=== PATIENT | female | born 1945 | race Caucasian/White ===

== ENCOUNTER → 2016-09-09 | Outpatient (CLI) | payer MEDICARE ==
[~2016-09-09] MED LIST: OLME1TAB24 PO
--- NOTE | 2016-09-10 08:01 | Diagnostic Imaging Report ---
Bilateral screening mammogram. The current study was also evaluated with a Computer Aided Detection (CAD) system. INDICATION: Screening. No current complaints stated on the questionnaire. COMPARISON: 09/09/2015. FINDINGS: The breasts are composed of scattered fibroglandular densities. There are occasional benign-appearing calcifications. Allowing for technique and positional differences, no suspicious change is seen. IMPRESSION: No significant change. ACR BI-RADS Category 2: Benign findings. Result letter will be mailed to the patient. Note: At least 10% of breast cancer is not imaged by mammography. Dictated by: Dictated on workstation # [id number]
== END ==
LOC: RAD 09:01
PROVIDERS: ATTEND Internal Medicine
DX: Z12.31 Encounter for screening mammogram for malignant neoplasm of breast (principal)
CPT/HCPCS: 77067

== ENCOUNTER → 2016-09-20 | Outpatient (CLI) | payer MEDICARE ==
--- NOTE | 2016-09-20 16:30 | Diagnostic Imaging Report ---
EXAMINATION: Three views of the left chest. INDICATION: Fall. FINDINGS: There is a focal cortical step-off and adjacent lucency seen along the distal radius suggestive of deformity, likely related to an old injury. No definitive acute fracture is seen. The patient has no prior left wrist radiographs for comparison at our institution. There is slight widening of the scapholunate interval which might also relate to an old injury to the scapholunate ligament. There are sclerotic changes along the trapezium and trapezoid, probably degenerative, at the intercarpal joint and at the corresponding carpometacarpal joint at this level. IMPRESSION: 1. Mild deformity in the distal radius is favored to be related to an old injury. No prior studies, however, are available for comparison. Correlate clinically and with a CT scan of the wrist if there is suspicion of an acute or subacute fracture. 2. Widening of the scapholunate interval is suggestive of underlying ligament injury of indeterminate age. Report faxed to Dr. Atkins at 4:30 p.m. 09/20/2016/rosemary Dictated by: Dictated on workstation # [id number]
== END ==
LOC: RAD 15:51
PROVIDERS: ATTEND Internal Medicine
DX: M25.532 Pain in left wrist (principal); W19.XXXA Unspecified fall, initial encounter; Y99.8 Other external cause status
CPT/HCPCS: 73110

== ENCOUNTER 2017-07-22 12:27 | Outpatient (CLI) | payer MEDICARE ==
[~2017-07-22] VITALS: Ht 172.7 cm; Wt 80.3 kg
[2017-07-22 12:40] VITALS: BP 148/90
[2017-07-22] MEDS ORDERED: PSYL660P17 PO (12:46)
[2017-07-22] MEDS ORDERED: POLY119P5 PO (12:46)
[2017-07-22] MEDS ORDERED: MULT1TAB69 PO (12:46)
[2017-07-22] MEDS ORDERED: CALC1TAB97 PO (12:46)
[2017-07-22 13:25] LABS: BASOPHILS % (AUTO) 0 % (0-10); EOSINOPHILS # (AUTO) 0.1 10^3/uL (0.0-0.3); EOSINOPHILS % (AUTO) 2 % (0-10); HEMATOCRIT 39 % (35-52); HEMOGLOBIN 13.3 G/DL (11.5-16.0); LYMPHOCYTES # (AUTO) 2.3 X 10^3 (1.0-4.0); LYMPHOCYTES % (AUTO) 36 % (12-44); MEAN CORPUSCULAR HEMOGLOBIN 31 PG (25-34); MEAN CORPUSCULAR HGB CONC 35 G/DL (32-36); MEAN CORPUSCULAR VOLUME 90 FL (80-99); MEAN PLATELET VOLUME 9.2 FL (7.4-10.4); MONOCYTES # (AUTO) 0.7 X 10^3 (0.0-1.0); MONOCYTES % (AUTO) 11 % (0-12); NEUTROPHILS # (AUTO) 3.1 X 10^3 (1.8-7.8); NEUTROPHILS % (AUTO) 50 % (42-75); PLATELET COUNT 333 10^3/uL (130-400); RED BLOOD COUNT 4.29 10^6/uL (4.35-5.85); RED CELL DISTRIBUTION WIDTH 13.1 % (10.0-14.5); WHITE BLOOD COUNT 6.3 10^3/uL (4.3-11.0)
[2017-07-22 13:26] LABS: BILIRUBIN,URINE NEGATIVE (NEGATIVE); CLARITY,URINE CLEAR; COLOR,URINE YELLOW; GLUCOSE, URINE (UA) NEGATIVE (NEGATIVE); KETONES,URINE NEGATIVE (NEGATIVE); LEUKOCYTE ESTERASE ,URINE NEGATIVE (NEGATIVE); NITRITE,URINE NEGATIVE (NEGATIVE); PH,URINE 7 (5-9); PROTEIN,URINE NEGATIVE (NEGATIVE); UROBILINOGEN,URINE NORMAL (NORMAL)
[2017-07-22 13:33] LABS: BACTERIA,URINE NEGATIVE /HPF
[2017-07-22 13:38] LABS: PROTHROMBIN TIME PATIENT 12.8 SEC (12.2-14.7)
[2017-07-22 13:46] LABS: ALANINE AMINOTRANSFERASE 18 U/L (0-55); ALBUMIN 4.2 GM/DL (3.2-4.5); ALKALINE PHOSPHATASE 92 U/L (40-136); BILIRUBIN,TOTAL 0.4 MG/DL (0.1-1.0); BUN/CREATININE RATIO 25; CALCIUM 9.8 MG/DL (8.5-10.1); CARBON DIOXIDE 27 MMOL/L (21-32); CHLORIDE 100 MMOL/L (98-107); GFR ESTIMATED > 60; GLUCOSE 92 MG/DL (70-105); POTASSIUM 4.2 MMOL/L (3.6-5.0); SODIUM 138 MMOL/L (135-145); TOTAL PROTEIN 7.3 GM/DL (6.4-8.2)
[2017-07-22 13:58] LABS: ERYTHROCYTE SEDIMENTATION RATE 6 MM/HR (0-30)
--- NOTE | 2017-07-22 17:48 | Diagnostic Imaging Report ---
INDICATION: Preop for knee replacement. PA and lateral chest obtained at 01:43 p.m. The heart is mildly enlarged. Mediastinal silhouette is otherwise unremarkable. The lungs are clear. There is no pneumothorax or pleural fluid. IMPRESSION: Mild cardiomegaly with no acute process in the chest. Dictated by: Dictated on workstation # [id number]
== END 2017-07-22 13:20 | disposition home or self-care (01) ==
LOC: PREOP 12:27
PROVIDERS: ATTEND Orthopaedic Surgery
DX: Z01.812 Encounter for preprocedural laboratory examination (principal); Z01.810 Encounter for preprocedural cardiovascular examination; Z01.811 Encounter for preprocedural respiratory examination; Z11.2 Encounter for screening for other bacterial diseases; M17.12 Unilateral primary osteoarthritis, left knee; R53.83 Other fatigue
CPT/HCPCS: 36415; 71046; 80053; 81000; 85025; 85610; 85652; 86850; 86900; 86901; 87081; 93005

== ENCOUNTER 2017-08-03 07:37 | Inpatient (IN) | payer MEDICARE ==
--- NOTE | 2017-07-26 09:41 | HISTORY AND PHYSICAL ---
DATE OF SERVICE: This will be for inpatient admission on 08/03/2017 for left total knee arthroplasty. HISTORY OF PRESENT ILLNESS: The patient is a 72-year-old female with longstanding progressive left knee pain. She has undergone treatment with injections, home exercise program and activity modifications. She ambulates with a cane due to the pain. She reports her pain has been progressive and activity limiting. She reports pain medially and anteriorly. Radiographs reveals severe medial and patellofemoral arthrosis. Due to failure to improve with conservative measures, we elected to proceed with surgical intervention. REVIEW OF SYSTEMS: No chest pain, no shortness of breath. No dysuria. PAST MEDICAL HISTORY: Diverticulosis, hypertension, menopause. PAST SURGICAL HISTORY: Unremarkable. SOCIAL HISTORY: The patient denies alcohol, tobacco use. FAMILY HISTORY: Significant for hypertension, diabetes, cancer. Primary care provider is Dr. Atkins. MEDICATIONS: Benicar, Citracal, fish oil, Metamucil, glucosamine, Aleve, Tylenol. ALLERGIES: No known drug allergies. PHYSICAL EXAMINATION: GENERAL: The patient is well developed, well-nourished in no acute distress. HEENT: Normocephalic, atraumatic. Pupils are equal, round, reactive. Oropharynx is clear. NECK: Supple, no lymphadenopathy. LUNGS: Clear to auscultation bilaterally. HEART: Regular rate and rhythm. ABDOMEN: Soft, nontender, nondistended. EXTREMITIES: The left knee demonstrates varus alignment. Range of motion is 0/5/120. There is no varus or valgus laxity. Negative anterior and posterior drawer. Moderate effusion is noted. The patient ambulates with an antalgic gait. IMPRESSION: Severe left knee end-stage osteoarthritis unresponsive to conservative measures. PLAN: Left total knee arthroplasty. Risks, benefits of operative complications and recovery were discussed at length with the patient. She understands and wishes to proceed. Job ID: [id number] DocumentID: [id number] Dictated Date: 07/26/2017 09:09:54 Production Tester Date: 07/26/2017 09:40:01 Dictated By: ANTOINETTE BOWDEN MD
[~2017-08-03] VITALS: Ht 172.7 cm; Wt 80.3 kg
[~2017-08-03 07:37] MED LIST changes: +CALC1TAB97 PO; +MULT1TAB69 PO; +POLY119P5 PO; +PSYL660P17 PO
[2017-08-03 07:40] VITALS: BP 138/83
--- OUTSIDE RECORDS SUMMARY | 2017-08-03 07:42 | XMS REPORT | Continuity of Care Document ---
Author Author [facility] Organization [facility] Address Unknown Phone Unavailable Allergies Active Description Code Type Severity Reaction Onset Reported/Identified Relationship to Patient Clinical Status Yes No Known Drug Allergies [id number] Drug Allergy Unknown N/A 11/26/2015 Medications There is no data. Problems Date Dx Coded Attending Type Code Diagnosis Diagnosed By 09/03/2014 Ot V76.12 09/03/2014 Ot V76.12 09/03/2014 Ot V76.12 09/03/2014 Ot V76.12 09/03/2014 IRIS LACKEY APRN Ot V76.12 09/06/2014 IRIS LACKEY APRN Ot V76.12 11/01/2014 IRIS LACKEY STOP ATTACHER Ot V76.12 09/09/2015 Ot V76.12 09/09/2015 Ot V76.12 09/09/2015 Ot V76.12 09/09/2015 IRIS LACKEY STOP ATTACHER Ot V76.12 09/09/2015 IRIS LACKEY APRN Ot V76.12 09/10/2015 SHAN LAZO MD Ot Z12.31 10/01/2015 SHAN LAZO MD Ot Z12.31 ENCNTR SCREEN MAMMOGRAM FOR MALIGNANT NE 11/26/2015 SONU KING MD Ot Z01.818 ENCOUNTER FOR OTHER PREPROCEDURAL EXAMIN 11/26/2015 SONU KING MD Ot Z12.11 ENCOUNTER FOR SCREENING FOR MALIGNANT NE 11/27/2015 SONU KING MD Ot Z01.818 ENCOUNTER FOR OTHER PREPROCEDURAL EXAMIN 11/27/2015 SONU KING MD Ot Z12.11 ENCOUNTER FOR SCREENING FOR MALIGNANT NE 12/03/2015 SONU KING MD Ot K57.90 DVRTCLOS OF INTEST, PART UNSP, W/O PERF 12/03/2015 SONU KING MD Ot K64.1 SECOND DEGREE HEMORRHOIDS 12/03/2015 SONU KING MD Ot K64.2 THIRD DEGREE HEMORRHOIDS 12/03/2015 SONU KING MD Ot Z12.11 ENCOUNTER FOR SCREENING FOR MALIGNANT NE 12/05/2015 SONU KING MD Ot K57.90 DVRTCLOS OF INTEST, PART UNSP, W/O PERF 12/05/2015 SONU KING MD, Ot K64.1 SECOND DEGREE HEMORRHOIDS 12/05/2015 SONU KING MD Ot K64.2 THIRD DEGREE HEMORRHOIDS 12/05/2015 SONU KING MD, Ot Z12.11 ENCOUNTER FOR SCREENING FOR MALIGNANT NE 04/07/2016 Ot V76.12 OTH SCREEN MAMMO-MALIGN NEOPLASM OF DIMAS 04/07/2016 Ot V76.12 OTH SCREEN MAMMO-MALIGN NEOPLASM OF DIMAS 04/07/2016 IRIS LACKEY STOP ATTACHER Ot V76.12 OTH SCREEN MAMMO-MALIGN NEOPLASM OF DIMAS 04/07/2016 IRIS LACKEY STOP ATTACHER Ot V76.12 OTH SCREEN MAMMO-MALIGN NEOPLASM OF DIMAS 04/07/2016 SHAN LAZO MD Ot Z12.31 ENCNTR SCREEN MAMMOGRAM FOR MALIGNANT NE 04/07/2016 SHAN LAZO MD Ot M25.562 PAIN IN LEFT KNEE 04/27/2016 SHAN LAZO MD Ot M25.562 PAIN IN LEFT KNEE 04/30/2016 SHAN LAZO MD Ot M25.562 PAIN IN LEFT KNEE 09/09/2016 SHAN LAZO MD Ot Z12.31 ENCNTR SCREEN MAMMOGRAM FOR MALIGNANT NE 09/09/2016 SHAN LAZO MD Ot Z12.31 ENCNTR SCREEN MAMMOGRAM FOR MALIGNANT NE 09/09/2016 SHAN LAZO MD Ot Z12.31 ENCNTR SCREEN MAMMOGRAM FOR MALIGNANT NE 09/20/2016 SHAN LAZO MD Ot M25.532 PAIN IN LEFT WRIST 09/20/2016 SHAN LAZO MD Ot W19.XXXA UNSPECIFIED FALL, INITIAL ENCOUNTER 09/20/2016 SHAN LAZO MD Ot Y99.8 OTHER EXTERNAL CAUSE STATUS 10/05/2016 SHAN LAZO MD Ot Z12.31 ENCNTR SCREEN MAMMOGRAM FOR MALIGNANT NE 10/12/2016 SHAN LAZO MD Ot M25.532 PAIN IN LEFT WRIST 10/12/2016 SHAN LAZO MD, Ot W19.XXXA UNSPECIFIED FALL, INITIAL ENCOUNTER 10/12/2016 SHAN LAZO MD Ot Y99.8 OTHER EXTERNAL CAUSE STATUS 10/20/2016 SHAN LAZO MD Ot M25.532 PAIN IN LEFT WRIST 10/20/2016 SHAN LAZO MD, Ot W19.XXXA UNSPECIFIED FALL, INITIAL ENCOUNTER 10/20/2016 SHAN LAZO MD, Ot Y99.8 OTHER EXTERNAL CAUSE STATUS Procedures There is no data. Results Test Result Range Methicillin resistant Staphylococcus aureus (MRSA) screening culture - 13:08 Methicillin resistant Staphylococcus aureus (MRSA) screening culture NEG NRG Complete blood count (CBC) with automated white blood cell (WBC) differential - 07/22/17 13:10 Blood leukocytes automated count (number/volume) 6.3 10*3/uL 4.3-11.0 Blood erythrocytes automated count (number/volume) 4.29 10*6/uL 4.35-5.85 Venous blood hemoglobin measurement (mass/volume) 13.3 g/dL 11.5-16.0 Blood hematocrit (volume fraction) 39 % 35-52 Automated erythrocyte mean corpuscular volume 90 [foz_us] 80-99 Automated erythrocyte mean corpuscular hemoglobin (mass per erythrocyte) 31 pg 25-34 Automated erythrocyte mean corpuscular hemoglobin concentration measurement ( mass/volume) 35 g/dL 32-36 Automated erythrocyte distribution width ratio 13.1 % 10.0-14.5 Automated blood platelet count (count/volume) 333 10*3/uL 130-400 Automated blood platelet mean volume measurement 9.2 [foz_us] 7.4-10.4 Automated blood neutrophils/100 leukocytes 50 % 42-75 Automated blood lymphocytes/100 leukocytes 36 % 12-44 Blood monocytes/100 leukocytes 11 % 0-12 Automated blood eosinophils/100 leukocytes 2 % 0-10 Automated blood basophils/100 leukocytes 0 % 0-10 Blood neutrophils automated count (number/volume) 3.1 10*3 1.8-7.8 Blood lymphocytes automated count (number/volume) 2.3 10*3 1.0-4.0 Blood monocytes automated count (number/volume) 0.7 10*3 0.0-1.0 Automated eosinophil count 0.1 10*3/uL 0.0-0.3 Automated blood basophil count (count/volume) 0.0 10*3/uL 0.0-0.1 Complete urinalysis with reflex to culture - 07/22/17 13:10 Urine color determination YELLOW NRG Urine clarity determination CLEAR NRG Urine pH measurement by test strip 7 5-9 Specific gravity of urine by test strip 1.005 1.016- 1.022 Urine protein assay by test strip, semi-quantitative NEGATIVE NEGATIVE Urine glucose detection by automated test strip NEGATIVE NEGATIVE Erythrocytes detection in urine sediment by light microscopy NEGATIVE NEGATIVE Urine ketones detection by automated test strip NEGATIVE NEGATIVE Urine nitrite detection by test strip NEGATIVE NEGATIVE Urine total bilirubin detection by test strip NEGATIVE NEGATIVE Urine urobilinogen measurement by automated test strip (mass/volume) NORMAL NORMAL Urine leukocyte esterase detection by dipstick NEGATIVE NEGATIVE Automated urine sediment erythrocyte count by microscopy (number/high power field) NONE NRG Automated urine sediment leukocyte count by microscopy (number/high power field ) NONE NRG Bacteria detection in urine sediment by light microscopy NEGATIVE NRG Squamous epithelial cells detection in urine sediment by light microscopy NONE NRG Crystals detection in urine sediment by light microscopy NONE NRG Casts detection in urine sediment by light microscopy NONE NRG Mucus detection in urine sediment by light microscopy NEGATIVE NRG Complete urinalysis with reflex to culture NO NRG PT panel in platelet poor plasma by coagulation assay - 07/22/17 13:10 Prothrombin time (PT) in platelet poor plasma by coagulation assay 12.8 s 12.2-14.7 INR in platelet poor plasma or blood by coagulation assay 1.0 0.8-1.4 Comprehensive metabolic panel - 07/22/17 13:10 Serum or plasma sodium measurement (moles/volume) 138 mmol/L 135-145 Serum or plasma potassium measurement (moles/volume) 4.2 mmol/L 3.6-5.0 Serum or plasma chloride measurement (moles/volume) 100 mmol/L 98-107 Carbon dioxide 27 mmol/L 21-32 Serum or plasma anion gap determination (moles/volume) 11 mmol/L 5-14 Serum or plasma urea nitrogen measurement (mass/volume) 20 mg/dL 7-18 Serum or plasma creatinine measurement (mass/volume) 0.80 mg/dL 0.60-1.30 Serum or plasma urea nitrogen/creatinine mass ratio 25 NRG Serum or plasma creatinine measurement with calculation of estimated glomerular filtration rate > NRG Serum or plasma glucose measurement (mass/volume) 92 mg/dL 70-105 Serum or plasma calcium measurement (mass/volume) 9.8 mg/dL 8.5-10.1 Serum or plasma total bilirubin measurement (mass/volume) 0.4 mg/dL 0.1-1.0 Serum or plasma alkaline phosphatase measurement (enzymatic activity/volume) 92 U/L 40-136 Serum or plasma aspartate aminotransferase measurement (enzymatic activity/ volume) 20 U/L 5-34 Serum or plasma alanine aminotransferase measurement (enzymatic activity/volume ) 18 U/L 0-55 Serum or plasma protein measurement (mass/volume) 7.3 g/dL 6.4-8.2 Serum or plasma albumin measurement (mass/volume) 4.2 g/dL 3.2-4.5 Erythrocyte sedimentation rate by westergren method - 07/22/17 13:10 Erythrocyte sedimentation rate by westergren method 6 mm 0-30 Blood type T Indirect antibody screen panel - 07/22/17 13:10 ABO+Rh group AP NRG Blood group antibody screen NEGATIVE NRG Encounters ACCT No. Visit Date/Time Discharge Status Pt. Type Provider Facility Loc./Unit Complaint [id number] 09/20/2016 15:51:00 09/20/2016 23:59:59 CLS Outpatient SHAN LAZO MD [facility] RAD PAIN POST FALL [id number] 09/09/2016 09:01:00 09/09/2016 23:59:59 CLS Outpatient SHAN LAZO MD [facility] RAD SCREENING [id number] 04/05/2016 10:53:00 04/05/2016 23:59:59 CLS Outpatient SHAN LAZO MD [facility] RAD L KNEE XRAY [id number] 12/03/2015 08:18:00 12/03/2015 12:05:00 DIS Outpatient SONU KING MD [facility] SDC SCREENING [id number] 11/26/2015 05:36:00 11/26/2015 08:58:00 DIS Outpatient SONU KING MD [facility] PREOP SCREENING [id number] 09/09/2015 10:25:00 09/09/2015 23:59:59 CLS Outpatient SHAN LAZO MD [facility] RAD SCREENING [id number] 09/03/2014 09:15:00 09/03/2014 23:59:59 CLS Outpatient IRIS LACKEY STOP ATTACHER [facility] RAD SCREENING [id number] 08/28/2013 10:24:00 08/28/2013 23:59:59 CLS Outpatient IRIS LACKEY STOP ATTACHER [facility] RAD SCREENING [id number] 08/03/2017 09:45:00 RYAN BOWDEN MD, ANTOINETTE Thurman LEFT KNEE OSTEOARTHRITIS [id number] 07/22/2017 13:27:00 Document Registration [id number] 08/21/2012 10:10:00 Document Registration [id number] 08/16/2011 08:19:00 Document Registration [id number] 08/06/2010 08:45:00 Document Registration [id number] 08/04/2009 08:52:00 Document Registration
[2017-08-03] MEDS ORDERED: LACTATED RINGERS 1,000 ML IV PRN (07:44)
[2017-08-03] MEDS ORDERED: CEFUROXIME INJECTION 1,500 MG in NS (IVPB) 50 ML IV ONE (07:45)
[2017-08-03] MEDS ORDERED: INTRA-ARTICULAR IU ONE ×5 (08:00)
[2017-08-03] MEDS ORDERED: fentaNYL INJECTION 100 MCG/2 ML AMP ONE ×2 (08:54→09:57)
[2017-08-03] MEDS ORDERED: LACTATED RINGERS 1,000 ML IV ONE (08:54)
[2017-08-03] MEDS ORDERED: LIDOCAINE PF 2% 5 ML (XYLOCAINE) VIAL ONE (08:54)
[2017-08-03] MEDS ORDERED: ONDANSETRON 4 MG/2 ML (SDV) Z0FRAN ONE (08:54)
[2017-08-03] MEDS ORDERED: proPOfol 200 MG/20 ML (DIPRIVAN) VIAL IV ONE (08:54)
[2017-08-03] MEDS ORDERED: ROCURONIUM 50 MG/5 ML (ZEMURON) VIAL IV ONE (08:54)
[2017-08-03] MEDS ORDERED: MIDAZOLAM 2 MG/2 ML (VERSED) VIAL ONE (08:55)
[2017-08-03] MEDS ORDERED: SEVOFLURANE (ULTANE) 15 ML INHAL SOLN ONE ×4 (09:07)
--- NOTE | 2017-08-03 09:12 | Progress Note-Pre Operative ---
Pre-Operative Progress Note H&P Reviewed The H&P was reviewed, patient examined and no changes noted. Date Seen by Provider: Aug 03, 2017 Time Seen by Provider: 09:05 Date H&P Reviewed: Aug 03, 2017 Time H&P Reviewed: 09:04 Pre-Operative Diagnosis: left knee primary osteoarthritis ANTOINETTE BOWDEN MD Aug 03, 2017 09:12
--- NOTE | 2017-08-03 09:13 | Progress Note-Post Operative ---
Post-Operative Progess Note Surgeon (s)/Java Mobile Developer (s) Surgeon ANTOINETTE BOWDEN MD Java Mobile Developer: Syed Keating Pre-Operative Diagnosis left knee primary osteoarthritis Post-Operative Diagnosis left knee primary osteoarthritis Procedure & Operative Findings Date of Procedure 08/03/17 Procedure Performed/Findings left total knee arthroplasty Anesthesia Type GETA Estimated Blood Loss Estimated blood loss (mL): minimal Specimens/Packing Specimens Removed none Packing: none ANTOINETTE BOWDEN MD Aug 03, 2017 09:13
[2017-08-03] MEDS ORDERED: OXYC-197 PO (09:14)
[2017-08-03] MEDS ORDERED: morphine PCA 30 MG/30 ML VIAL IV PRN (09:15)
[2017-08-03] MEDS ORDERED: ACETAMINOPHEN 325 MG TABLET/CAPLET (TYLENOL) PO PRN (09:15)
[2017-08-03] MEDS ORDERED: diphenhydrAMINE 50 MG/ML INJ (BENADRYL) IVP PRN (09:15)
[2017-08-03] MEDS ORDERED: ONDANSETRON 4 MG/2 ML (SDV) Z0FRAN IVP PRN ×2 (09:15→11:00)
--- NOTE | 2017-08-03 09:16 | D/C HH Face to Face Order ---
D/C Face to Face Orders Instructions for Patient Patient Instructions/FollowUp: three weeks Physician to follow Patient: three weeks Discharge Diet for Home: Regular Diet Patient Data-Allergies,Ht & Wt Patient Allergies: Coded Allergies: No Known Drug Allergies (Unverified , 11/26/15) Height (Feet): 5 Height (Inches): 8.00 Weight (Pounds): 177 Weight (Ounces): 0.0 Home Health Need/Face to Face Date of Face to Face: Aug 03, 2017 Clinical Findings: Instability, Muscle weakness, Non or partial weight bearing , Pain with ambulation, Unsteady gait I have seen Pt [id number]: Yes Discharged To: Home Diagnosis/Conditions: left total knee arthroplasty Problems/Diagnosis/Condition: Patient is Homebound due to: Selvin fall risk due to instabilty, Pain w/ ambulation Homebound Status Due to the above stated illness, injury or surgical procedure (medical condition or diagnosis) and associated clinical findings, the patient is homebound because of his/her inability to leave home except with aid of a supportive device and/or person AND leaving the home requires a considerable and taxing effort or is medically contraindicated. Pt req the following assistanc: [facility] Nursing Orders Home Health Services Order: Physical Therapy-Evaluate & Treat Home Health Infusion Therapy Line Start Date: Aug 03, 2017 Line Start Time: 0815 Line Type: Peripheral IV Site Location: Hand Therapy Orders Therapy Orders: Physical Therapy Therapy Specific Orders: Eval assistive deivces, Teach enviro modifications/ safety, Gait training, Increase strength/endurance, Restore ROM Certify Stmt I certify that this patient is under my care and that I, a nurse practitioner or a physician; a child care center assistant director working with me, had a face to face encounter that - meets the physician face to face encounter requirements with this patient as dated. ANTOINETTE BOWDEN MD Aug 03, 2017 09:16
[2017-08-03] MEDS ORDERED: morphine INJ 10 MG/ML 1ML (SYR OR VIAL) ONE (10:14)
[2017-08-03] MEDS ORDERED: MEPERIDINE (DEMEROL) INJ 50 MG/ML IVP PRN (11:00)
[2017-08-03] MEDS: morphine INJ 10 MG/ML 1ML (SYR OR VIAL) IVP PRN ×2 (11:04→11:08)
[2017-08-03] MEDS ORDERED: PROMETHAZINE INJ 25 MG/ML (PHENERGAN) AMP ONE (11:06)
[2017-08-03] MEDS: HYDROmorphone (DILAUDID) 2 MG/ML VIAL IVP PRN ×4 (11:10→11:38)
[2017-08-03] MEDS: PROMETHAZINE INJ 25 MG/ML (PHENERGAN) AMP IVP PRN ×2 (11:18→11:29)
--- NOTE | 2017-08-03 11:33 | Diagnostic Imaging Report ---
INDICATION: Left knee arthroplasty. TIME OF EXAMINATION: 11:00 AM. FINDINGS: Two views of the left knee demonstrate postop changes of total knee arthroplasty. The prosthetic elements are in good position. Overlying skin rafa are noted. IMPRESSION: Satisfactory postop appearance to the left knee. Dictated by: Dictated on workstation # [id number]
--- NOTE | 2017-08-03 11:58 | Progress Note-Standard ---
Standard Progress Note Progress Notes/Assess & Plan Date Seen by Provider: Aug 03, 2017 Time Seen by Provider: 11:53 Progress/Assessment & Plan post op check no complaints radiographs--hw well positioned without fractures LLE-2 plus DP with brisk cap refill. sensation intact throughout. Intact DF and PF of toes and ankle s/p L TKA doing well mobilize as tolerated ANTOINETTE BOWDEN MD Aug 03, 2017 11:58
[2017-08-03 12:30] VITALS: BP 148/76
[2017-08-03] MEDS: NS IV 1000 ML 1,000 ML IV SCH (12:44)
--- NOTE | 2017-08-03 14:09 | Consultation-Hospitalist ---
HPI History of Present Illness: HPI/Chief Complaint Pt is a 72yoCF with a history of OA and HTN who was admitted to the hospital for left TKA. She is postoperative now and still somewhat sedated from the anesthesia. She denies any complaints. She reports her only history is HTN and she only takes medicine for that. I am consulted for medical management. Date Seen 08/03/17 Attending Physician Shaan Montemayor MD PCP Francisco Atkins MD Referring Physician Date of Admission Aug 03, 2017 at 7:37 am Home Medications & Allergies Home Medications Reviewed patient Home Medication Reconciliation Form Allergies Allergies Coded Allergies No Known Drug Allergies (Unverified11/26/15) Past Ginprbq-Agvwyv-Hgenvq Hx Patient Social History Marrital Status: Alcohol Use: Rarely Uses Number of Drinks Today: 0 Recreational Drug Use: No Smoking Status: Never a Smoker Physical Abuse Screen: No Sexual Abuse: No Recent Foreign Travel: No Contact w/other who traveled: No Recent Hopitalizations: No Recent Infectious Disease Expo: No Immunizations Up To Date Date of Pneumonia Vaccine: Jul 22, 2013 Date of Influenza Vaccine: Mar 13, 2017 Seasonal Allergies Seasonal Allergies: No Surgeries Yes (cataracts) Respiratory No Cardiovascular No Neurological No Genitourinary No (OAB) Gastrointestinal Yes Chronic Constipation, Diverticulosis Musculoskeletal Yes Arthritis Endocrine History of Endocrine Disorders: No HEENT History of HEENT Disorders: Yes (CATARACTS REMOVED,) Cancer No Psychosocial History of Psychiatric Problem: No Integumentary History of Skin or Integumenta: No Blood Transfusions History of Blood Disorders: No Family Medical History Family Hx: Colon cancer 19 FATHER (LIVER) 19 MOTHER (LIVER) Diabetes mellitus G8 BROTHER G8 SISTER Hypertension G8 BROTHER G8 SISTER Respiratory disorder 19 MOTHER (LUNG CANCER) Thyroid disease G8 SISTER Review of Systems Constitutional: No chills, No fever EENTM: No blurred vision, No double vision, No nose congestion, No throat pain Respiratory: No cough, No dyspnea on exertion, No short of breath Cardiovascular: No chest pain, No edema, No palpitations Gastrointestinal: No abdominal pain, No constipation, No diarrhea, No nausea, No vomiting Genitourinary: No dysuria, No frequency Musculoskeletal: joint pain, No muscle pain Skin: No lesions, No rash Psychiatric/Neurological: Denies Headache, Denies Numbness, Denies Tingling Physical Exam Physical Exam Vital Signs Vital Signs - First Documented 2/21/18 2/21/18 07:40 12:30 Temp 98.7 Pulse 68 Resp 16 B/P (MAP) 138/83 (101) Pulse Ox 96 O2 Delivery Room Air O2 Flow Rate 4.00 Capillary Refill : General Appearance: No Apparent Distress, WD/WN HEENT: PERRL/EOMI, Moist Mucous Membranes Neck: Non Tender, Supple Respiratory: Lungs Clear, No Respiratory Distress Cardiovascular: Regular Rate, Rhythm, No Murmur Gastrointestinal: Normal Bowel Sounds, Non Tender, Soft Extremity: Normal Capillary Refill, No Calf Tenderness Neurologic/Psychiatric: Alert, Oriented x3, Normal Mood/Affect Skin: Normal Color, Warm/Dry Assessment/Plan Admission Diagnosis left knee osteoarthritis Diagnosis/Problems Diagnosis/Problems (1) Knee osteoarthritis Assessment & Plan: s/p TKA by Dr Montemayor Management per primary PT/OT SORT SUPERVISOR for pain control Qualifiers: Qualified Codes: M17.10 - Unilateral primary osteoarthritis, unspecified knee (2) Essential (primary) hypertension Assessment & Plan: Continue home antihypertensives (3) Prophylactic measure Assessment & Plan: Lovenox Reg Diet NS at 80ml/hr Clinical Quality Measures DVT/VTE Risk/Contraindication: Risk Factor Score Per Nursin RFS Level Per Nursing on Admit: 4+=Very High DIOMEDES ALVAREZ MD Aug 03, 2017 2:09 pm
--- NOTE | 2017-08-03 15:08 | Physical Therapy Evaluation ---
PT Evaluation-General Medical Diagnosis Admission Date Aug 03, 2017 at 07:37 Medical Diagnosis: L knee OA Onset Date: Aug 03, 2017 Therapy Diagnosis Therapy Diagnosis: weakness; abn gait Height/Weight Height (Feet): 5 Height (Inches): 8.00 Weight (Pounds): 177 Weight (Ounces): 0.0 Precautions Precautions/Isolations: Fall Prevention, Standard Precautions Weight Bear Status Right Lower Extremity: Right Full Weight Bearing Left Lower Extremity: Left Weight Bearing/Tolerated Referral Physician: Albina Reason for Referral: Evaluation/Treatment Medical History Pertinent Medical History: Diverticulitis, HTN Current History Elective left TKR Reviewed History: Yes Social History Home: Single Level Current Living Status: Spouse Prior/Core FIM Prior Level of Function Functional [place] Measure 0=Not Assessed/NA 4=Minimal Assistance 1=Total Assistance 5=Supervision or Setup 2=Maximal Assistance 6=Modified [place] 3=Moderate Assistance 7=Complete [place] Pt was indep at [facility] PT Evaluation-Current Subjective Pt very groggy. Difficulty staying awake. Agrees to try to participate. Pain Numeric Pain Scale: 5-Moderate Pain Location: Left Location Body Site: Knee Pain Description: Ache Pt/Family Goals Home when able Objective Patient Orientation: Person, Confused (groggy due to pain meds), Place, Time, Situation Problem Solving: Fair Attachments: Oxygen, IV ROM/Strength ROM Lower Extremities WFL Strength Lower Extremities Right LE is WFL; left LE NT Integumentary/Posture Integumentary Refer to nursing notes. Bowel Incontinence: No Bladder Incontinence: No Posture normal and symmetrical Neuromuscular (Tone, Coordination, Reflexes) intact Sensory Vision: Functional Hearing: Functional Hand Dominance: Right Transfers Functional [place] Measure 0=Not Assessed/NA 4=Minimal Assistance 1=Total Assistance 5=Supervision or Setup 2=Maximal Assistance 6=Modified [place] 3=Moderate Assistance 7=Complete [place] Pt was able to transfer sup to sit EOB with min assist primarily for the left LE. Sit to stand with min assist. Pt stood at EOB with FWW with min assist. Pt required min assist to transfer sit to supine. Gait Gait Assistive Device: FWW Balance Sitting Static: Good Sitting Dynamic: Good Standing Static: Fair Standing Dynamic: Fair Treatment Pt stood EOB with FWW. Unable to take steps this visit as it was unsafe due to patient's level of grogginess due to pain meds. CPM applied 0-45 degrees. Nursing notified and to remove the CPM at [id number]. Assessment/Needs Post elective TKR left. Will beneift from skilled PT to address functional mobility, ROM, strength and gait . She is groggy today due to pain medication and anesthesia. Feel that tomorrow she will be more clear. Rehab Potential: Good PT Penitentiary Goals Penitentiary Goals PT Penitentiary Goals Time Frame: Aug 08, 2017 Transfers (B,C,W/C) (FIM): 6 Gait (FIM): 6 Gait distance (FIM): 3=150 ft Gait Assistive Device: FWW Stairs (FIM): 2 # of Steps: 4 PT Plan Problem List Problem List: Activity Tolerance, Functional Strength, Safety, Balance, Gait, Transfer, Bed Mobility Treatment/Plan Treatment Plan: Continue Plan of Care Treatment Plan: Bed Mobility, Education, Functional Activity Krish, Functional Strength, Gait, Safety, Therapeutic Exercise, Transfers Treatment Duration: Aug 08, 2017 Frequency: 11 times per week Estimated Hrs Per Day: 1 hour per day Patient and/or Family Agrees t: Yes Safety Risks/Education Patient Education: Transfer Techniques Teaching Recipient: Patient Teaching Methods: Discussion Response to Teaching: Reinforcement Needed Discharge Recommendations Therapy D/C Recommendations: Physical Therapy Home Care Time/GCodes Time In: 1430 Time Out: 1455 Total Billed Treatment Time: 25 Total Billed Treatment visit EMV 15 FA 10 CPM and pads. CAMPOS NEGRETE PT Aug 03, 2017 15:08
[2017-08-03 16:00] VITALS: BP 128/72
[2017-08-03] MEDS: CEFUROXIME INJECTION 750 MG in NS (IVPB) 50 ML IV SCH (17:05)
--- NOTE | 2017-08-03 17:14 | OPERATIVE REPORT ---
DATE OF SERVICE: 08/03/2017 PREOPERATIVE DIAGNOSIS: Left knee primary osteoarthritis. POSTOPERATIVE DIAGNOSIS: Left knee primary osteoarthritis. PROCEDURE: Right total knee arthroplasty. SURGEON: Shaan Bowden MD. BOOK RETAILER: SUSAN Rodriguez, who assisted throughout the procedure and closed the incisions. ANESTHESIA: General endotracheal. TOURNIQUET TIME: 65 minutes at 300 mmHg. ESTIMATED BLOOD LOSS: Minimal. DRAINS: None. COMPLICATIONS: None. POSTOPERATIVE PLAN: Routine protocol. The patient was transferred to the recovery room awake and in stable condition. MATERIALS: MicroPort cemented size 5 femur, cemented size 4+ tibia with a 10 mm insert and a cemented size 32 patella. STATEMENT OF MEDICAL NECESSITY: The patient is a 72-year-old female with progressive worsening left knee pain. She has ambulated with a cane and has tried injections, anti-inflammatories and activity modifications without relief. Radiographs reveal severe tricompartmental osteoarthritis. Due to failure to respond to conservative management with progressive loss of function, the patient elected to proceed with surgical intervention. DESCRIPTION OF PROCEDURE: After risks and benefits of procedure were discussed and questions were answered, an informed consent was signed and placed on the chart. The operative site was confirmed in the preoperative holding area and the patient was transported to the operating room. After adequate levels of general endotracheal anesthetic were obtained, a timeout was called, confirming the operative site. Left lower extremity was prepped and draped in usual sterile fashion with the leg elevated and the knee flexed, tourniquet inflated 300 mmHg. A standard anterior approach was utilized. Hemostasis was obtained with cautery. A medial parapatellar arthrotomy was performed leaving 1 cm cuff on the patella for later reattachment; a portion of the fat pad was resected. A subperiosteal release was performed in the proximal medial tibia with curved osteotome being careful to stay on the bony surface. The ACL was resected. The intramedullary guide was passed into the femur and the distal cutting block was placed. Distal cut was made. The femur sized to a size 5. The 5 cutting block was placed parallel to the epicondylar axis and cuts were made from posterior to anterior. A subperiosteal release was then carefully performed on the posterior distal femur, being careful to stay on the bony surface with curved osteotome. The intramedullary guide was then passed into the tibia. The cutting block was placed. The drop mikey transected the intermalleolar axis. The cut was made. The baseplate was placed and again the drop mikey transected. The intramedullary axis was then prepared with the drill and keel punch. The tibial trial was placed. The femoral trial was placed and the trochlear cut was made. A 10 mm insert was then placed. The patella was then prepared using freehand technique by resecting 10 mm off the undersurface. The peg guide was then placed and the peg holes were drilled. The 32 trial was placed. Knee was taken through range of motion, full extension was easily obtained. Greater than 120 degrees of flexion with gravity was easily obtained. There was no anterior/posterior or medial/lateral laxity in flexion or extension. The trials were inserted. The joint was copiously irrigated with pulse lavage. The periarticular block was placed in the posterior capsule, medial and lateral retinaculum and extensor mechanism as well as subcutaneous tissues. The bone ends were irrigated and dried. The tibial baseplate was cemented into position. Excess cement was removed. The superior surface was then irrigated and dried. The polyethylene insert was placed. The distal femur was irrigated and dried and the femoral prosthesis was cemented into position. Excessive cement was removed. The knee was brought out into full extension until the cement had cured. The undersurface of the patella was irrigated and dried. The patellar button was cemented into position. Excessive cement was removed. Once the cement had cured, knee was taken through range of motion. Full extension was easily obtained; 120 degrees of flexion was easily obtained with gravity. The patella tracked well. There is no anterior/posterior or medial/lateral laxity in flexion or extension. The joint was further irrigated with pulse lavage. The arthrotomy was closed with #2 Tevdek in figure-of-8 interrupted fashion. The knee was flexed. The patella tracked well with no undue tension at the repair site. Subcutaneous tissues were irrigated using a total of 6 liters throughout the procedure. 0 Vicryl was used for the deep subcutaneous tissue, 2-0 Vicryl for the superficial subcutaneous tissue, and rafa were used on the skin. A soft dressing was applied. Tourniquet was deflated. The patient was transported to the recovery room awake and in stable condition. Job ID: [id number] DocumentID: [id number] Dictated Date: 08/03/2017 12:00:10 Prescription Eyeglass Maker Date: 08/03/2017 17:13:28 Dictated By: SHAAN BOWDEN MD
[2017-08-03] MEDS: SENNA W/DOCUSATE (SENOKOT S) TABLET PO SCH (19:37)
[2017-08-03 20:00] VITALS: BP 143/70
[2017-08-03 23:57] VITALS: BP 128/70
[2017-08-04] MEDS: CEFUROXIME INJECTION 750 MG in NS (IVPB) 50 ML IV SCH (00:50)
[2017-08-04] MEDS: NS IV 1000 ML 1,000 ML IV SCH (00:50)
[2017-08-04 04:00] VITALS: BP 132/57
[2017-08-04] MEDS: MULTIVIT W/MINERALS TAB (THERAGRAN M) PO SCH (06:03)
[2017-08-04 06:31] LABS: HEMOGLOBIN 9.8 G/DL (11.5-16.0)
--- NOTE | 2017-08-04 07:58 | Progress Note-Standard ---
Standard Progress Note Progress Notes/Assess & Plan Date Seen by Provider: Aug 04, 2017 Time Seen by Provider: 07:56 Progress/Assessment & Plan post op check no complaints radiographs--hw well positioned without fractures LLE-2 plus DP with brisk cap refill. sensation intact throughout. Intact DF and PF of toes and ankle s/p L TKA doing well mobilize as tolerated Final Diagnosis having thigh pain Vital Signs Date Time Temp Pulse Resp B/P (MAP) Pulse Ox O2 Delivery O2 Flow Rate FiO2 08/04/17 07:32 92 Nasal Cannula 2.00 08/04/17 06:00 20 08/04/17 04:00 98.0 75 20 132/57 (82) 97 Nasal Cannula 2.00 08/04/17 02:53 97 Nasal Cannula 2.00 08/03/17 23:57 97.1 75 16 128/70 (89) 98 Nasal Cannula 2.00 08/03/17 22:51 97 Nasal Cannula 2.00 08/03/17 20:00 96.8 74 16 143/70 (94) 96 Nasal Cannula 4.00 08/03/17 20:00 Nasal Cannula 2.00 08/03/17 19:18 95 Nasal Cannula 2.00 08/03/17 16:00 98.6 80 16 128/72 (90) 93 Nasal Cannula 4.00 08/03/17 14:48 96 Nasal Cannula 3.00 08/03/17 13:27 100 Nasal Cannula 3.50 08/03/17 12:51 16 08/03/17 12:45 94 Nasal Cannula 4.00 08/03/17 12:30 98.0 71 16 148/76 (100) 99 Nasal Cannula 4.00 I & O 08/04/17 07:00 Intake Total 3180 ml Output Total 350 ml Balance 2830 ml Laboratory Tests Test 08/04/17 05:05 Range/Units Hemoglobin 9.8 L 11.5-16.0 G/DL Hematocrit 30 L 35-52 % LLE--dressing intact.NVI distally. mildly painful at tourniquet site s/p LTKA PT/OT will require inpatient status due to pain control and gait disorder ANTOINETTE BOWDEN MD Aug 04, 2017 07:58
[2017-08-04 08:00] VITALS: BP 142/67
[2017-08-04] MEDS: ENOXAPARIN 30 MG/0.3 ML (LOVENOX) SYR SC SCH ×2 (08:16→19:26)
[2017-08-04] MEDS: HYDROCHLOROTHIAZIDE 12.5 MG (HCTZ) CAP PO SCH (08:17)
[2017-08-04] MEDS: OLMESARTAN 20 MG (BENICAR) TABLET PO SCH (08:17)
[2017-08-04] MEDS: oxyCODONE/APAP 5/325MG (PERCOCET 5) TABLET PO PRN ×4 (08:17→19:32)
[2017-08-04] MEDS: ASPIRIN E.C. 81 MG (ECOTRIN) TAB PO SCH (08:17)
[2017-08-04] MEDS: SENNA W/DOCUSATE (SENOKOT S) TABLET PO SCH ×2 (08:18→19:36)
[2017-08-04] MEDS ORDERED: [UNRECOGNIZED DRUG - OTHER] PO SCH (09:00)
[2017-08-04] MEDS ORDERED: HYDROCHLOROTHIAZIDE PO SCH (09:00)
[2017-08-04] MEDS ORDERED: OLMESARTAN PO SCH (09:00)
--- NOTE | 2017-08-04 09:04 | Physical Therapy Daily Note ---
PT Daily Note-Current Subjective Patient agrees to PT. Pain Numeric Pain Scale: 7 Location: Left Location Body Site: Knee Pain Description: Acute Comment: VIDEO EFFECTS EDITOR and pain medication Mental Status Patient Orientation: Normal For Age Attachments: Polar Pack, IV Transfers Functional [place] Measure 0=Not Assessed/NA 4=Minimal Assistance 1=Total Assistance 5=Supervision or Setup 2=Maximal Assistance 6=Modified [place] 3=Moderate Assistance 7=Complete IndependenceIRFPAI Quality Coding Scale 6 Independent with activity with or without an assistive device 5 Patient requires set up or clean up by helper. Patient completes activity by themselves 4 Supervision or touching assist (CGA). [place] provide cues , steadying assist 3 The helper provides less than half the effort to complete the activity 2 The helper provides more than half the effort to complete the activity 1 Dependent. The helper does all the effort to complete an activity 7 Patient refused to complete or attempt activity 9 The patient did not perform the activity before the current illness or injury 88 Not attempted due to Medical conditions or safety concerns Transfers (B, C, W/C) (FIM): 5 Scootin Rollin Supine to/from Sit: 5 Sit to/from Stand: 5 Weight Bearing Right Lower Extremity: Right Full Weight Bearing Left Lower Extremity: Left Weight Bearing/Tolerated Gait Training Gait (FIM): 2 Distance (FIM): 1=072-05 ft Distance: 50' Gait Level of Assist: 4 Gait Assistive Device: FWW antalgic, step to gait sequence Exercises Supine Ex: Ankle pumps, Quad Set, Heel Slides, Straight leg raise Supine Reps: 10 (bilatearlly AAROM left LE) Seated Therapy Exercises: Long arc quads Seated Reps: 10 (AROM) Assessment Patient is progressing with treatment plan. Patient is up in recliner with needs met. PT encouraged patient to perform seated exercises PRN while up. Patient voices understanding. PT educated patient on VIDEO EFFECTS EDITOR and pain medication to ensure the best possible outcome with therapy. PT Prison Goals Vacuum Conditioner Operator Goals PT Vacuum Conditioner Operator Goals Time Frame: Aug 08, 2017 Transfers (B,C,W/C) (FIM): 6 Gait (FIM): 6 Gait distance (FIM): 3=150 ft Gait Assistive Device: FWW Stairs (FIM): 2 # of Steps: 4 PT Plan Treatment/Plan Treatment Plan: Continue Plan of Care Treatment Plan: Bed Mobility, Education, Functional Activity Krish, Functional Strength, Gait, Safety, Therapeutic Exercise, Transfers Treatment Duration: Aug 08, 2017 Frequency: 11 times per week Estimated Hrs Per Day: 1 hour per day Patient and/or Family Agrees t: Yes Time/GCodes Time In: 815 Time Out: 838 Total Billed Treatment Time: 23 Total Billed Treatment 1 visit EX 10 min GT 13 min ZULMA OLSON PT Aug 04, 2017 09:04
--- NOTE | 2017-08-04 09:24 | Progress Note-Hospitalist ---
Subjective HPI/CC On Admission Date Seen by Provider: Aug 04, 2017 Time Seen by Provider: 09:15 Pt is a 72yoCF with a history of OA and HTN who was admitted to the hospital for left TKA. She is postoperative now and still somewhat sedated from the anesthesia. She denies any complaints. She reports her only history is HTN and she only takes medicine for that. I am consulted for medical management. Subjective/Events-last exam Pt reports persistent pain in her knee. States WARD SERVICE SUPERVISOR is "doing okay" for her pain. Eating some toast. Urinating without difficulty. Objective Exam Vital Signs Vital Signs Date Time Temp Pulse Resp B/P (MAP) Pulse Ox O2 Delivery O2 Flow Rate FiO2 08/03/17 07:40 98.7 68 16 138/83 (101) 96 Room Air 08/03/17 12:30 4.00 Capillary Refill : General Appearance: No Apparent Distress, WD/WN Respiratory: Lungs Clear, No Accessory Muscle Use, No Respiratory Distress Cardiovascular: Regular Rate, Rhythm, No Murmur Gastrointestinal: Normal Bowel Sounds, Non Tender, Soft Neurologic/Psychiatric: Alert, Oriented x3 Results/Procedures Lab Laboratory Tests 08/04/17 05:05 Assessment/Plan Assessment and Plan Assess & Plan/Chief Complaint s/p TKA Diagnosis/Problems Diagnosis/Problems (1) Knee osteoarthritis Assessment & Plan: s/p TKA by Dr Montemayor Management per primary PT/OT Morphine WARD SERVICE SUPERVISOR for pain control IRU consulted Qualifiers: Qualified Codes: M17.10 - Unilateral primary osteoarthritis, unspecified knee (2) Essential (primary) hypertension Assessment & Plan: Continue home antihypertensives (3) Prophylactic measure Assessment & Plan: Lovenox Reg Diet Saline Lock DIOMEDES ALVAREZ MD Aug 04, 2017 9:24 am
[2017-08-04 11:33] VITALS: BP 120/62
--- NOTE | 2017-08-04 14:01 | Physical Therapy Daily Note ---
PT Daily Note-Current Subjective Patient agrees to PT. Rated her left knee pain 7/10 Pain Numeric Pain Scale: 7 Location: Left Location Body Site: Knee Pain Description: Acute Mental Status Patient Orientation: Normal For Age Attachments: IV Transfers Functional [place] Measure 0=Not Assessed/NA 4=Minimal Assistance 1=Total Assistance 5=Supervision or Setup 2=Maximal Assistance 6=Modified [place] 3=Moderate Assistance 7=Complete IndependenceIRFPAI Quality Coding Scale 6 Independent with activity with or without an assistive device 5 Patient requires set up or clean up by helper. Patient completes activity by themselves 4 Supervision or touching assist (CGA). [place] provide cues , steadying assist 3 The helper provides less than half the effort to complete the activity 2 The helper provides more than half the effort to complete the activity 1 Dependent. The helper does all the effort to complete an activity 7 Patient refused to complete or attempt activity 9 The patient did not perform the activity before the current illness or injury 88 Not attempted due to Medical conditions or safety concerns Transfers (B, C, W/C) (FIM): 5 Scootin Rollin Supine to/from Sit: 5 Sit to/from Stand: 5 Weight Bearing Right Lower Extremity: Right Full Weight Bearing Left Lower Extremity: Left Weight Bearing/Tolerated Gait Training Gait (FIM): 5 Distance (FIM): 3=150 ft Distance: 200' Gait Level of Assist: 5 Gait Assistive Device: FWW slow, antalgic, step to gait sequence Exercises Supine Ex: Ankle pumps, Quad Set, Heel Slides, Straight leg raise Supine Reps: 10 Seated Therapy Exercises: Ankle pumps, Long arc quads Seated Reps: 15 Treatments CPM 0-70 degrees with polar pack in place Assessment Patient progressing with treatment plan. Will continue to increase activity as tolerated by patient. PT Gluing Machine Operator Electronic Goals Halfway Goals PT Halfway Goals Time Frame: Aug 08, 2017 Transfers (B,C,W/C) (FIM): 6 Gait (FIM): 6 Gait distance (FIM): 3=150 ft Gait Assistive Device: FWW Stairs (FIM): 2 # of Steps: 4 PT Plan Treatment/Plan Treatment Plan: Continue Plan of Care Treatment Plan: Bed Mobility, Education, Functional Activity Krish, Functional Strength, Gait, Safety, Therapeutic Exercise, Transfers Treatment Duration: Aug 08, 2017 Frequency: 11 times per week Estimated Hrs Per Day: 1 hour per day Patient and/or Family Agrees t: Yes Time/GCodes Time In: 1245 Time Out: 1309 Total Billed Treatment Time: 24 Total Billed Treatment 1 visit EX 13 min GT 11 min ZULMA OLSON PT Aug 04, 2017 14:01
--- NOTE | 2017-08-04 14:03 | Anesthesia-General Post-Op ---
General Patient Condition Mental Status/LOC: Same as Preop Cardiovascular: Satisfactory Nausea/Vomiting: Absent Respiratory: Satisfactory Pain: Controlled Complications: Absent Post Op Complications Complications None Follow Up Care/Instructions Patient Instructions None needed. Anesthesia/Patient Condition Patient Condition Patient is doing well, no complaints, stable vital signs, no apparent adverse anesthesia problems. No complications reported per nursing. CHRIS SILVA CRNA Aug 04, 2017 14:03
--- NOTE | 2017-08-04 15:15 | Occupational Therapy Eval ---
OT Evaluation-General/PLF Medical Diagnosis Admission Date Aug 03, 2017 at 07:37 Medical Diagnosis: L knee OA Onset Date: Aug 03, 2017 Therapy Diagnosis Therapy Diagnosis: Decreased ADL skills Height/Weight Height (Feet): 5 Height (Inches): 8.00 Weight (Pounds): 177 Weight (Ounces): 0.0 Precautions Precautions/Isolations: Fall Prevention, Standard Precautions Safety Interventions: None Weight Bear Status Weight Bearing Restriction: Weight Bearing/Tolerated Referral Physician: Albina Referral Reason: Activity Tolerance, Self Care, Evaluation/Treatment, Strengthening/ROM Medical History Pertinent Medical History: Diverticulitis, HTN Additional Medical History cataracts removed Current History Pt. failed conservative measures. Knee replaced. Reviewed History: Yes Social History Home: Single Level Current Living Status: Spouse Entry Into Home: Stairs With Railing ADL-Prior Level of Function ADL PLOF Comments Pt. lives in [place] with spouse. Pt. was independent with daily skills. Would occassionally use a cane. DME/Equipment: Shower, Tub/Shower DME/Equipment Comments Pt. has a walker and cane. Drive Self: Yes OT Current Status Subjective Pt. reports 9/10 pain in knee. Pt. has a NOZZLEMAN. Appearance Pt. up in chair. States that she is having a fair amount of pain. Pt. agrees to work with OT. Mental Status/Objective Patient Orientation: Person, Place, Time Pt. somewhat groggy throughout treatment. Current Hand Dominance: Right Upper Extremity ROM WFL ADL-Treatment Functional [place] Measure 0=Not Assessed/NA 4=Minimal Assistance 1=Total Assistance 5=Supervision or Setup 2=Maximal Assistance 6=Modified [place] 3=Moderate Assistance 7=Complete IndependenceIRFPAI Quality Coding Scale 6 Independent with activity with or without an assistive device 5 Patient requires set up or clean up by helper. Patient completes activity by themselves 4 Supervision or touching assist (CGA). [place] provide cues , steadying assist 3 The helper provides less than half the effort to complete the activity 2 The helper provides more than half the effort to complete the activity 1 Dependent. The helper does all the effort to complete an activity 7 Patient refused to complete or attempt activity 9 The patient did not perform the activity before the current illness or injury 88 Not attempted due to Medical conditions or safety concerns Bathing (FIM): 3 (Mod assist to wash LE. Pt. able to wash nora areas in walker in stance.) Lower Body Dressing (FIM): 4 (Min assist overall to doff/don socks.) Transfers (B, C, W/C) (FIM): 4 (CGA to stand out of chair and balance self to wash nora areas.) Education OT Patient Education: Correct positioning, Modified ADL techniques, Progress toward Goal/Update tx plan, Purpose of tx/functional activities, Reviewed precautions, Rehab process, Transfer techniques Teaching Recipient: Patient Teaching Methods: Demonstration, Discussion Response to Teaching: Verbalize Understanding, Return Demonstration OT Short Term Goals Short Term Goals 1=Demonstrate adherence to instructed precautions during ADL tasks. 2=Patient will verbalize/demonstrate understanding of assistive devices/ modifications for ADL. 3=Patient will improve strength/tolerance for activity to enable patient to perform ADL's. OT Motion Picture Critic Goals Motion Picture Critic Goals Time Frame: Aug 11, 2017 Eating (FIM): 6 Grooming(FIM): 6 Bathing(FIM): 5 Upper Body Dressing(FIM): 6 Lower Body Dressing(FIM): 5 Toileting(FIM): 6 Transfers (B,C,W/C) (FIM): 6 Toilet/Commode Transfer(FIM): 6 Shower Transfer(FIM): 5 Additional Goals: 1-Demonstrate ADL Tasks, 2-Verbalize Understanding, 3- ImproveStrength/Krish 1=Demonstrate adherence to instructed precautions during ADL tasks. 2=Patient will verbalize/demonstrate understanding of assistive devices/ modifications for ADL. 3=Patient will improve strength/tolerance for activity to enable patient to perform ADL's. OT Education/Plan Problem List/Assessment Assessment: Decreased Activ Tolerance, Impaired I ADL's, Impaired Self-Care Skills Discharge Recommendations Plan/Recommendations: Continue POC Therapy D/C Recommendations: Home w/ Family Support, Occupational Therapy Home Care Equpiment Recommendations-D/C: Extended Bath Bench, Hip Kit Target Placement Home with spouse. Treatment Plan/Plan of Care Treatment,Training & Education: Yes Patient would benefit from OT for education, treatment and training to promote independence in ADL's, mobility, safety and/or upper extremity function for ADL' s. Plan of Care: ADL Retraining, Functional Mobility, UE Funct Exercise/Act Treatment Duration: Aug 11, 2017 Frequency: 5 times per week Estimated Hrs Per Day: .5 hour per day Agreement: Yes Rehab Potential: Good Time/GCodes Start Time: 11:15 Stop Time: 11:40 Total Time Billed (hr/min): 25 Billed Treatment Time 1, EVM x 10minutes, ADL x 15minutes RUDDY RUELAS OT Aug 04, 2017 15:14
[2017-08-04 16:00] VITALS: BP 118/61
[2017-08-04 19:48] VITALS: BP 124/65
[2017-08-04 23:04] VITALS: BP 132/65
[2017-08-05] MEDS: ONDANSETRON 4 MG (ZOFRAN) ORAL DISSOLVE TAB PO PRN (05:58)
[2017-08-05] MEDS: MULTIVIT W/MINERALS TAB (THERAGRAN M) PO SCH (05:58)
[2017-08-05] MEDS: oxyCODONE/APAP 5/325MG (PERCOCET 5) TABLET PO PRN ×5 (06:00→20:06)
[2017-08-05 06:11] LABS: HEMOGLOBIN 9.4 G/DL (11.5-16.0)
--- NOTE | 2017-08-05 07:08 | Progress Note-Standard ---
Standard Progress Note Progress Notes/Assess & Plan Date Seen by Provider: Aug 05, 2017 Time Seen by Provider: 07:06 Progress/Assessment & Plan post op check no complaints radiographs--hw well positioned without fractures LLE-2 plus DP with brisk cap refill. sensation intact throughout. Intact DF and PF of toes and ankle s/p L TKA doing well mobilize as tolerated Final Diagnosis No complaints Vital Signs Date Time Temp Pulse Resp B/P (MAP) Pulse Ox O2 Delivery O2 Flow Rate FiO2 08/04/17 23:04 98.9 89 16 132/65 (87) 96 Nasal Cannula 2.00 08/04/17 19:48 99.1 91 20 124/65 (84) 91 Room Air 08/04/17 19:24 Nasal Cannula 2.00 08/04/17 18:57 94 Room Air 08/04/17 16:00 98.4 91 20 118/61 (80) 91 Room Air 08/04/17 14:54 92 Room Air 08/04/17 11:33 97.7 82 18 120/62 (81) 97 Nasal Cannula 2.00 08/04/17 10:41 97 Room Air 08/04/17 08:00 98.3 72 16 142/67 (92) 98 Nasal Cannula 2.00 08/04/17 07:32 92 Nasal Cannula 2.00 I & O 08/05/17 07:00 Intake Total 2050 ml Output Total 1150 ml Balance 900 ml Laboratory Tests Test 08/05/17 05:45 Range/Units Hemoglobin 9.4 L 11.5-16.0 G/DL Hematocrit 28 L 35-52 % LLE--incision clean and dry. No calf tenderness. Neg Marcia's. Neg SLR s/p LTKA progressing well continue PT/OT likely DC tomorrow ANTOINETTE BOWDEN MD Aug 05, 2017 07:08
[2017-08-05] MEDS ORDERED: morphine INJ 4 MG/ML 1 ML (VIAL/SYRINGE) IVP PRN (07:15)
[2017-08-05 08:00] VITALS: BP 132/64
[2017-08-05] MEDS: HYDROCHLOROTHIAZIDE 12.5 MG (HCTZ) CAP PO SCH (08:03)
[2017-08-05] MEDS: ENOXAPARIN 30 MG/0.3 ML (LOVENOX) SYR SC SCH ×2 (08:03→20:06)
[2017-08-05] MEDS: OLMESARTAN 20 MG (BENICAR) TABLET PO SCH (08:03)
[2017-08-05] MEDS: ASPIRIN E.C. 81 MG (ECOTRIN) TAB PO SCH (08:03)
[2017-08-05] MEDS: SENNA W/DOCUSATE (SENOKOT S) TABLET PO SCH ×2 (08:04→20:05)
--- NOTE | 2017-08-05 09:38 | Physical Therapy Daily Note ---
PT Daily Note-Current Subjective Patient c/o nausea from sinus drainage. Agrees to PT. Pain Numeric Pain Scale: 7 Location: Left Location Body Site: Knee Pain Description: Acute Mental Status Patient Orientation: Normal For Age Transfers Functional [place] Measure 0=Not Assessed/NA 4=Minimal Assistance 1=Total Assistance 5=Supervision or Setup 2=Maximal Assistance 6=Modified [place] 3=Moderate Assistance 7=Complete IndependenceIRFPAI Quality Coding Scale 6 Independent with activity with or without an assistive device 5 Patient requires set up or clean up by helper. Patient completes activity by themselves 4 Supervision or touching assist (CGA). [place] provide cues , steadying assist 3 The helper provides less than half the effort to complete the activity 2 The helper provides more than half the effort to complete the activity 1 Dependent. The helper does all the effort to complete an activity 7 Patient refused to complete or attempt activity 9 The patient did not perform the activity before the current illness or injury 88 Not attempted due to Medical conditions or safety concerns Transfers (B, C, W/C) (FIM): 5 Scootin Sit to/from Stand: 5 Weight Bearing Right Lower Extremity: Right Full Weight Bearing Left Lower Extremity: Left Weight Bearing/Tolerated Gait Training Gait (FIM): 5 Distance (FIM): 3=150 ft Distance: 325' x 2 Gait Level of Assist: 5 Gait Assistive Device: FWW slow, antalgic Stair Training Stair Training: Handrails/: 1 handrail, uses walker Stairs (FIM): 5 #of Steps: 4 Stairs: Pattern: Step to Level of Assist: 5 Exercises Seated Therapy Exercises: Ankle pumps, Long arc quads Seated Reps: 25 Assessment Current Status: Excellent Progress Patient tolerated treatment well and is progressing with treatment plan. Patient to dismiss to home tomorrow after PT. PT Senior Living Goals Senior Living Goals PT Senior Living Goals Time Frame: Aug 08, 2017 Transfers (B,C,W/C) (FIM): 6 Gait (FIM): 6 Gait distance (FIM): 3=150 ft Gait Assistive Device: FWW Stairs (FIM): 2 # of Steps: 4 PT Plan Treatment/Plan Treatment Plan: Continue Plan of Care Treatment Plan: Bed Mobility, Education, Functional Activity Krish, Functional Strength, Gait, Safety, Therapeutic Exercise, Transfers Treatment Duration: Aug 08, 2017 Frequency: 11 times per week Estimated Hrs Per Day: 1 hour per day Patient and/or Family Agrees t: Yes Time/GCodes Time In: 830 Time Out: 910 Total Billed Treatment Time: 40 Total Billed Treatment 1 visit GT 20 min FA 10 min EX 10 min ZULMA OLSON PT Aug 05, 2017 09:38
--- NOTE | 2017-08-05 11:21 | Progress Note-Hospitalist ---
Subjective HPI/CC On Admission Date Seen by Provider: Aug 05, 2017 Time Seen by Provider: 11:00 Pt is a 72yoCF with a history of OA and HTN who was admitted to the hospital for left TKA. She is postoperative now and still somewhat sedated from the anesthesia. She denies any complaints. She reports her only history is HTN and she only takes medicine for that. I am consulted for medical management. Subjective/Events-last exam Pt reports persistent pain but doing better. Ambulating with PT. No other complaints. Objective Exam Vital Signs Vital Signs Date Time Temp Pulse Resp B/P (MAP) Pulse Ox O2 Delivery O2 Flow Rate FiO2 08/03/17 07:40 98.7 68 16 138/83 (101) 96 Room Air 08/03/17 12:30 4.00 Capillary Refill : General Appearance: No Apparent Distress, WD/WN Respiratory: No Respiratory Distress Extremity: Normal Capillary Refill, No Pedal Edema Neurologic/Psychiatric: Alert, Oriented x3, Normal Mood/Affect Results/Procedures Lab Laboratory Tests 08/05/17 05:45 Assessment/Plan Assessment and Plan Assess & Plan/Chief Complaint s/p TKA Diagnosis/Problems Diagnosis/Problems (1) Knee osteoarthritis Assessment & Plan: s/p TKA by Dr Montemayor Management per primary PT/OT Morphine prn Oxycodone prn Bowel regimen Qualifiers: Qualified Codes: M17.10 - Unilateral primary osteoarthritis, unspecified knee (2) Essential (primary) hypertension Assessment & Plan: Continue home antihypertensives (3) Prophylactic measure Assessment & Plan: Lovenox Reg Diet Saline Lock DIOMEDES ALVAREZ MD Aug 05, 2017 11:21
--- NOTE | 2017-08-05 13:48 | Occupational Ther Daily Note ---
OT Current Status-Daily Note Subjective Pt in bed, agrees to treatment. Mental Status/Objective Functional [place] Measure 0=Not Assessed/NA 4=Minimal Assistance 1=Total Assistance 5=Supervision or Setup 2=Maximal Assistance 6=Modified [place] 3=Moderate Assistance 7=Complete [place] ADL-Treatment Pt supine to sit with SBA. Pt states she had a sponge bath earlier today, but would like to get dressed. Pt donned pullover shirt with set up. Donned pants with supervision and cues for technique. Pt stood with good balance during pant hike using FWW. Pt demonstrated ability to doff socks with SBA. Donned right sock without assistance. Used sock aid to don left sock. Pt states she will be discharged home tomorrow with spouse. Has no questions or concerns at this time. Pt resting in bed with needs met, polar pack and CPM in place after session. Upper Body (FIM): 5 Lower Body Dressing (FIM): 5 OT Short Term Goals Short Term Goals 1=Demonstrate adherence to instructed precautions during ADL tasks. 2=Patient will verbalize/demonstrate understanding of assistive devices/ modifications for ADL. 3=Patient will improve strength/tolerance for activity to enable patient to perform ADL's. OT Walking Dragline Oiler Goals Walking Dragline Oiler Goals Time Frame: Aug 11, 2017 Eating (FIM): 6 Grooming(FIM): 6 Bathing(FIM): 5 Upper Body Dressing(FIM): 6 Lower Body Dressing(FIM): 5 Toileting(FIM): 6 Transfers (B,C,W/C) (FIM): 6 Toilet/Commode Transfer(FIM): 6 Shower Transfer(FIM): 5 Additional Goals: 1-Demonstrate ADL Tasks, 2-Verbalize Understanding, 3- ImproveStrength/Krish 1=Demonstrate adherence to instructed precautions during ADL tasks. 2=Patient will verbalize/demonstrate understanding of assistive devices/ modifications for ADL. 3=Patient will improve strength/tolerance for activity to enable patient to perform ADL's. OT Education/Plan Discharge Recommendations Plan/Recommendations: Continue POC Treatment Plan/Plan of Care Patient would benefit from OT for education, treatment and training to promote independence in ADL's, mobility, safety and/or upper extremity function for ADL' s. Plan of Care: ADL Retraining, Functional Mobility, UE Funct Exercise/Act Treatment Duration: Aug 11, 2017 Frequency: 5 times per week Estimated Hrs Per Day: .5 hour per day Agreement: Yes Rehab Potential: Good Time/GCodes Start Time: 11:43 Stop Time: 12:03 Total Time Billed (hr/min): 20 Billed Treatment Time 1 visit, ADL(20minutes) KINGSLEY HUANG OT Aug 05, 2017 13:48
--- NOTE | 2017-08-05 13:58 | Physical Therapy Daily Note ---
PT Daily Note-Current Subjective Patient is in bed and agrees to PT. Pain Numeric Pain Scale: 8 Location: Left Location Body Site: Knee Pain Description: Acute Mental Status Patient Orientation: Normal For Age Attachments: Polar Pack Transfers Functional [place] Measure 0=Not Assessed/NA 4=Minimal Assistance 1=Total Assistance 5=Supervision or Setup 2=Maximal Assistance 6=Modified [place] 3=Moderate Assistance 7=Complete IndependenceIRFPAI Quality Coding Scale 6 Independent with activity with or without an assistive device 5 Patient requires set up or clean up by helper. Patient completes activity by themselves 4 Supervision or touching assist (CGA). [place] provide cues , steadying assist 3 The helper provides less than half the effort to complete the activity 2 The helper provides more than half the effort to complete the activity 1 Dependent. The helper does all the effort to complete an activity 7 Patient refused to complete or attempt activity 9 The patient did not perform the activity before the current illness or injury 88 Not attempted due to Medical conditions or safety concerns Transfers (B, C, W/C) (FIM): 5 Scootin Rollin Supine to/from Sit: 5 Sit to/from Stand: 5 Weight Bearing Right Lower Extremity: Right Full Weight Bearing Left Lower Extremity: Left Weight Bearing/Tolerated Gait Training Gait (FIM): 5 Distance (FIM): 3=150 ft Distance: 250' Gait Level of Assist: 5 Gait Assistive Device: FWW slow, antalgic, step to pattern Exercises Supine Ex: Ankle pumps, Quad Set, Heel Slides, Straight leg raise Supine Reps: 10 (2 sets) Seated Therapy Exercises: Long arc quads Seated Reps: 15 Standing: Heel/toe raises Standing Reps: 15 Treatments CPM 0-86 degrees with polar pack in place Assessment Patient tolerated treatment well and is on CPM with polar pack. PT instructed patient to perform exercises issued in pre op and patient voices understanding. PT Prison Goals Post Anesthesia Room Nurse Goals PT Prison Goals Time Frame: Aug 08, 2017 Transfers (B,C,W/C) (FIM): 6 Gait (FIM): 6 Gait distance (FIM): 3=150 ft Gait Assistive Device: FWW Stairs (FIM): 2 # of Steps: 4 PT Plan Treatment/Plan Treatment Plan: Continue Plan of Care Treatment Plan: Bed Mobility, Education, Functional Activity Krish, Functional Strength, Gait, Safety, Therapeutic Exercise, Transfers Treatment Duration: Aug 08, 2017 Frequency: 11 times per week Estimated Hrs Per Day: 1 hour per day Patient and/or Family Agrees t: Yes Time/GCodes Time In: 1255 Time Out: 1318 Total Billed Treatment Time: 23 Total Billed Treatment 1 visit EX 15 min GT 8 min ZULMA OLSON PT Aug 05, 2017 13:58
[2017-08-05 15:57] VITALS: BP 125/63
[2017-08-06] VITALS: BP 122/63
[2017-08-06] MEDS: oxyCODONE/APAP 5/325MG (PERCOCET 5) TABLET PO PRN ×2 (01:36→08:03)
[2017-08-06] MEDS: MULTIVIT W/MINERALS TAB (THERAGRAN M) PO SCH (06:10)
[2017-08-06 08:00] VITALS: BP 130/67
[2017-08-06] MEDS: OLMESARTAN 20 MG (BENICAR) TABLET PO SCH (08:02)
[2017-08-06] MEDS: HYDROCHLOROTHIAZIDE 12.5 MG (HCTZ) CAP PO SCH (08:02)
[2017-08-06] MEDS: ENOXAPARIN 30 MG/0.3 ML (LOVENOX) SYR SC SCH (08:02)
[2017-08-06] MEDS: ASPIRIN E.C. 81 MG (ECOTRIN) TAB PO SCH (08:02)
[2017-08-06] MEDS: SENNA W/DOCUSATE (SENOKOT S) TABLET PO SCH (08:02)
--- NOTE | 2017-08-06 08:29 | Progress Note-Hospitalist ---
Subjective HPI/CC On Admission Date Seen by Provider: Aug 06, 2017 Time Seen by Provider: 08:28 Pt is a 72yoCF with a history of OA and HTN who was admitted to the hospital for left TKA. She is postoperative now and still somewhat sedated from the anesthesia. She denies any complaints. She reports her only history is HTN and she only takes medicine for that. I am consulted for medical management. Subjective/Events-last exam Pt reports doing well. No complaints. BM yesterday. Eating and drinking well. Ready for discharge. Objective Exam Vital Signs Vital Signs Date Time Temp Pulse Resp B/P (MAP) Pulse Ox O2 Delivery O2 Flow Rate FiO2 08/03/17 07:40 98.7 68 16 138/83 (101) 96 Room Air 08/03/17 12:30 4.00 Capillary Refill : General Appearance: No Apparent Distress, WD/WN Respiratory: Lungs Clear, No Respiratory Distress Cardiovascular: Regular Rate, Rhythm, No Murmur Neurologic/Psychiatric: Alert, Oriented x3 Results/Procedures Lab Laboratory Tests 08/06/17 05:20 Assessment/Plan Assessment and Plan Assess & Plan/Chief Complaint s/p TKA Diagnosis/Problems Diagnosis/Problems (1) Knee osteoarthritis Assessment & Plan: s/p TKA by Dr Montemayor Management per primary PT/OT Morphine prn Oxycodone prn Bowel regimen Qualifiers: Qualified Codes: M17.10 - Unilateral primary osteoarthritis, unspecified knee (2) Essential (primary) hypertension Assessment & Plan: Continue home antihypertensives OK for DC from medical point of view when ok with surgeon (3) Prophylactic measure Assessment & Plan: Lovenox Reg Diet Saline Lock DIOMEDES ALVAREZ MD Aug 06, 2017 08:29
[2017-08-06] MEDS: ONDANSETRON 4 MG (ZOFRAN) ORAL DISSOLVE TAB PO PRN (10:03)
--- NOTE | 2017-08-06 10:08 | Progress Note-Standard ---
Standard Progress Note Progress Notes/Assess & Plan Date Seen by Provider: Aug 06, 2017 Time Seen by Provider: 10:07 Progress/Assessment & Plan post op check no complaints radiographs--hw well positioned without fractures LLE-2 plus DP with brisk cap refill. sensation intact throughout. Intact DF and PF of toes and ankle s/p L TKA doing well mobilize as tolerated Final Diagnosis left knee primary osteoarthritis no complaints Vital Signs Date Time Temp Pulse Resp B/P (MAP) Pulse Ox O2 Delivery O2 Flow Rate FiO2 08/06/17 08:00 99.1 95 18 130/67 (88) 97 Nasal Cannula 2.00 08/06/17 00:00 98.0 100 20 122/63 (82) 96 Room Air 08/05/17 20:06 Room Air 08/05/17 15:57 96.6 92 18 125/63 (83) 96 Room Air I & O 08/06/17 07:00 Intake Total 2170 ml Output Total 800 ml Balance 1370 ml Laboratory Tests Test 08/06/17 05:20 Range/Units Hemoglobin 9.0 L 11.5-16.0 G/DL Hematocrit 27 L 35-52 % Laboratory Tests Test 08/06/17 05:20 Range/Units Hemoglobin 9.0 L 11.5-16.0 G/DL Hematocrit 27 L 35-52 % LLE--neg Aldo's. dressing intact. SLR with assistance s/p DONALDO dc home today after PT ANTOINETTE BOWDEN MD Aug 06, 2017 10:08
[2017-08-06 11:35] VITALS: BP 130/67
--- NOTE | 2017-08-06 12:05 | Physical Therapy Daily Note ---
PT Daily Note-Current Subjective Pt sitting in recliner upon arrival. Pt agrees to PT for walking and pt educ. questions before discharge. Pain Numeric Pain Scale: 5-Moderate Pain Location: Left Location Body Site: Knee Pain Description: Ache, Tightness Mental Status Patient Orientation: Person, Place, Time, Situation Attachments: Polar Pack Transfers Functional [place] Measure 0=Not Assessed/NA 4=Minimal Assistance 1=Total Assistance 5=Supervision or Setup 2=Maximal Assistance 6=Modified [place] 3=Moderate Assistance 7=Complete IndependenceIRFPAI Quality Coding Scale 6 Independent with activity with or without an assistive device 5 Patient requires set up or clean up by helper. Patient completes activity by themselves 4 Supervision or touching assist (CGA). [place] provide cues , steadying assist 3 The helper provides less than half the effort to complete the activity 2 The helper provides more than half the effort to complete the activity 1 Dependent. The helper does all the effort to complete an activity 7 Patient refused to complete or attempt activity 9 The patient did not perform the activity before the current illness or injury 88 Not attempted due to Medical conditions or safety concerns Scootin Sit to/from Stand: 5 Weight Bearing Right Lower Extremity: Right Full Weight Bearing Left Lower Extremity: Left Weight Bearing/Tolerated Gait Training Distance (FIM): 3=150 ft Distance: 200' Gait Level of Assist: 5 Gait Persons Needed: 1 Gait Assistive Device: FWW Pt walks with slightly flexed L knee to prevent as much WBing. COMBINATION MACHINE TENDER encouraged pt to WBAT to normalize gait. Pt demonstrates increased tightness at start of walk which loosens as pt ambulates. Treatments Pt & Sp inquire about how to complete car transfer, how to use polar pack & what should pt continue to do at home to get better. Pt transfers from recliner to standing using FWW at A. Pt ambulates in hallway before returning to room to rest. Pt transfers back to recliner to rest at end of tx with all needs met. Assessment Current Status: Good Progress Pt is walking increased distances and has increased the normality of her gait & WBing. PT Resource Management Specialist Goals Detention Goals PT Detention Goals Time Frame: Aug 08, 2017 Transfers (B,C,W/C) (FIM): 6 Gait (FIM): 6 Gait distance (FIM): 3=150 ft Gait Assistive Device: FWW Stairs (FIM): 2 # of Steps: 4 PT Plan Problem List Problem List: Activity Tolerance, Functional Strength, Gait Treatment/Plan Treatment Plan: Continue Plan of Care Treatment Plan: Bed Mobility, Education, Functional Activity Krish, Functional Strength, Gait, Safety, Therapeutic Exercise, Transfers Treatment Duration: Aug 08, 2017 Frequency: 11 times per week Estimated Hrs Per Day: 1 hour per day Patient and/or Family Agrees t: Yes Safety Risks/Education Patient Education: Gait Training, Correct Positioning, Safety Issues Teaching Recipient: Patient, Significant Other Teaching Methods: Discussion Response to Teaching: Verbalize Understanding Time/GCodes Time In: 1042 Time Out: 1107 Total Billed Treatment Time: 25 Total Billed Treatment 1, GT (12m) & FA (13m) CYRIL VARELA COMBINATION MACHINE TENDER Aug 06, 2017 12:05
--- NOTE | 2017-08-06 14:00 | DISCHARGE SUMMARY ---
DATE OF SERVICE: DIAGNOSES: 1. Left knee primary osteoarthritis. 2. Diverticulosis. 3. Hypertension. PROCEDURES: Left total knee arthroplasty. SUMMARY: The patient is a 72-year-old female who is admitted the day of a total knee arthroplasty. She required regular admission inpatient status due to gait abnormalities and pain management issues. She progressed well postoperatively. At the time of discharge, her wound was clean and dry. She had no calf tenderness. Negative Homans sign. She could perform a straight leg raise with assistance. She was tolerating a diet well and tolerating pain with oral pain medication. CONDITION AT DISCHARGE: Good. DISCHARGE DIET: Regular. FOLLOWUP: Followup is in 3 weeks. Home physical therapy has been arranged. ACTIVITIES: Weightbearing as tolerated with walker. DISCHARGE MEDICATIONS: Home medications, Percocet as needed for pain and an aspirin a day. Job ID: [id number] DocumentID: [id number] Dictated Date: 08/06/2017 10:06:19 Printed Circuit Layout Taper Date: 08/06/2017 13:59:43 Dictated By: ANTOINETTE BOWDEN MD
== END 2017-08-06 11:35 | disposition home health service (06) | DRG 470 ==
LOC: 4TH 07:37 → SURG 07:38 → 4TH 10:53
PROVIDERS: ADMIT Orthopaedic Surgery; ATTEND Orthopaedic Surgery
PROC: 0SRD0J9 Replacement of Left Knee Joint with Synthetic Substitute, Cemented, Open Approach (ICD-10-PCS; principal; 2017-08-03 09:17)
DX: M17.12 Unilateral primary osteoarthritis, left knee (principal); I10 Essential (primary) hypertension; K57.90 Diverticulosis of intestine, part unspecified, without perforation or abscess without bleeding; K59.09 Other constipation
CPT/HCPCS: 36415; 73560; 85014; 85018; 86850; 86900; 86901; 94664; 94760

== ENCOUNTER → 2017-11-21 | Outpatient (CLI) | payer MEDICARE ==
[~2017-11-21] MED LIST changes: +OXYC-197 PO
--- NOTE | 2017-11-21 11:18 | Diagnostic Imaging Report ---
INDICATION: Routine screening. COMPARISON: 09/09/2016 and 09/09/2015. TECHNIQUE: 2D and 3D bilateral screening mammography was performed with CAD. FINDINGS: Scattered fibroglandular densities are identified bilaterally. The parenchymal pattern is stable. No discrete mass or malignant appearing microcalcifications are seen. The axillae are unremarkable. IMPRESSION: No mammographic features suspicious for malignancy are identified. ACR BI-RADS Category 1: Negative. Result letter will be mailed to the patient. Note: At least 10% of breast cancer is not imaged by mammography. Dictated by: Dictated on workstation # [id number]
== END ==
LOC: RAD 09:38
PROVIDERS: ATTEND Nurse Practitioner
DX: Z12.31 Encounter for screening mammogram for malignant neoplasm of breast (principal)
CPT/HCPCS: 77067

== ENCOUNTER → 2018-11-22 | Outpatient (CLI) | payer MEDICARE ==
[~2018-11-22] MED LIST changes: -OXYC-197 PO; +OXYC1TAB87 PO
--- NOTE | 2018-11-22 18:47 | Diagnostic Imaging Report ---
INDICATION: Screening. At this time there are no current complaints. EXAMINATION: Bilateral digital screening mammogram with CAD. 3D tomographic images were obtained and reviewed. The current study was also evaluated with a Computer Aided Detection (CAD) system. COMPARISON: This study was compared to the prior exams of 11/21/2017, 09/09/2016 and 09/09/2015. FINDINGS: The fibroglandular tissue in both retroareolar regions is heterogeneously dense. This does limit the sensitivity of this exam. On the MLO view of the right breast in the superior aspect of the breast, approximately 9 cm from the nipple, there is a small 2 mm density. This finding does not persist on the tomographic views and cannot be identified on the craniocaudad view. I suspect this is secondary to fibroglandular tissue alone. There is no primary or secondary sign of malignancy noted. IMPRESSION: There is no evidence for malignancy. ACR BI-RADS Category 1: Negative. Result letter will be mailed to the patient. Note: At least 10% of breast cancer is not imaged by mammography. Dictated by: Dictated on workstation # [id number]
== END ==
LOC: RAD 09:34
PROVIDERS: ATTEND Internal Medicine
DX: Z12.31 Encounter for screening mammogram for malignant neoplasm of breast (principal)
CPT/HCPCS: 77067

== ENCOUNTER → 2019-03-21 | Outpatient (CLI) | payer MEDICARE ==
--- NOTE | 2019-03-21 14:25 | Diagnostic Imaging Report ---
PROCEDURE: US Renal Bilateral. TECHNIQUE: Multiple real-time grayscale images were obtained over the kidneys in various projections bilaterally. INDICATION: Abnormal MRI performed at an outside facility. COMPARISON: The prior MRI and the prior MRI report is not available for comparison. FINDINGS: The right kidney measures 10.7 x 4.4 x 4.4 cm and the left kidney measures 10.9 x 5.7 x 5.2 cm. Cortical thickness and echogenicity is normal bilaterally. There are bilateral renal cysts present. The largest cyst on the right measures approximately 1.4 cm in diameter. Largest cyst on the left measures approximately 4.4 cm in diameter. No calculi or hydronephrosis is seen. Urinary bladder is unremarkable. Bilateral ureteral jets were visualized. IMPRESSION: Bilateral renal cysts. No definite solid renal mass is detected. No calculi or hydronephrosis is detected. Dictated by: Dictated on workstation # [id number]
== END ==
LOC: RAD 11:53
PROVIDERS: ATTEND Internal Medicine
DX: N28.1 Cyst of kidney, acquired (principal); R93.89 Abnormal findings on diagnostic imaging of other specified body structures
CPT/HCPCS: 76770

== ENCOUNTER → 2019-11-26 | Outpatient (CLI) | payer MEDICARE ==
--- NOTE | 2019-11-26 12:23 | Diagnostic Imaging Report ---
INDICATION: Routine screening. COMPARISON: 11/22/2018 and 11/21/2017. TECHNIQUE: 2D and 3D bilateral screening mammography was performed with CAD. FINDINGS: Scattered fibroglandular densities are identified bilaterally. The parenchymal pattern is stable. No mass or malignant appearing microcalcifications are identified. The axillae are unremarkable. IMPRESSION: No mammographic features suspicious for malignancy are identified. ACR BI-RADS Category 1: Negative. Result letter will be mailed to the patient. Note: At least 10% of breast cancer is not imaged by mammography. Dictated by: Dictated on workstation # [id number]
== END ==
LOC: RAD 10:43
PROVIDERS: ATTEND Internal Medicine
DX: Z12.31 Encounter for screening mammogram for malignant neoplasm of breast (principal)
CPT/HCPCS: 77063; 77067

== ENCOUNTER → 2020-11-26 | Outpatient (CLI) | payer MEDICARE ==
[~2020-11-26] MED LIST changes: +MULT-567 PO; -MULT1TAB69 PO
--- NOTE | 2020-11-26 21:55 | Diagnostic Imaging Report ---
INDICATION: Routine screening. COMPARISON: Prior mammogram from 11/26/2019 and 11/22/2018. EXAMINATION: 2D and 3D bilateral screening mammography was performed with CAD. The current study was also evaluated with a Computer Aided Detection (CAD) system. FINDINGS: Scattered fibroglandular densities are identified, bilaterally. No mass or malignant appearing microcalcification is seen. Occasional benign calculus locations are noted. Axillae are unremarkable. IMPRESSION: No mammographic features suspicious for malignancy are identified. ACR BI-RADS Category 2: Benign findings. Result letter will be mailed to the patient. Note: At least 10% of breast cancer is not imaged by mammography. Dictated by: Dictated on workstation # [id number]
== END ==
LOC: RAD 09:42
PROVIDERS: ATTEND Internal Medicine
DX: Z12.31 Encounter for screening mammogram for malignant neoplasm of breast (principal)
CPT/HCPCS: 77063; 77067

== ENCOUNTER → 2021-02-17 | Outpatient (CLI) | payer MEDICARE ==
--- NOTE | 2021-02-17 10:03 | Diagnostic Imaging Report ---
INDICATION: Postmenopausal state. COMPARISON: 12/12/2008. FINDINGS: AP Spine L1-L4: [BMD (g/cm2): 1.402] [T-Score: 1.7] [Z-Score: 3.4] [BMD Previous: NA] [BMD % Change: NA] LT Hip Neck: [BMD (g/cm2): 0.803] [T-Score: -1.7] [Z-Score: 0.3] LT Hip Total: [BMD (g/cm2):0.829] [T-Score:-1.4] [Z-Score: 0.4] [BMD Previous: NA] [BMD % Change: NA] RT Hip Neck: [BMD (g/cm2):0.863] [T-Score:-1.3] [Z-Score:0.7] RT Hip Total: [BMD (g/cm2):0.873] [T-score:-1.1] [Z-Score:0.7] [BMD Previous:NA] [BMD % Change:NA] *Indicates significant change from prior examination based on 95% confidence level. World Health Organization criteria for BMD interpretation classify patients as Normal (T-score at or above -1.0), Osteopenic (T-score between -1.0 and -2.5) or Osteoporotic (T-score at or below -2.5). LIMITATIONS AND MODIFICATION: None. FRACTURE RISK (FRAX SCORE): The ten year probability of (%): Major Osteoporotic Fracture: [11.9] Hip Fracture: [2.9] IMPRESSION: 1. Osteopenia (Low bone mass). 2. Due to differences in equipment utilized between examinations, direct quantitative comparison is not possible to assess for interval change in bone mineral density. 3. See below National Osteoporosis Foundation guidelines on when to potentially initiate pharmacologic therapy. Based on the National Osteoporosis Foundation Guidelines, pharmacologic treatment should be initiated in any of the following, unless clinical conditions suggest otherwise: * Any patient with prior fragility fracture of the hip or vertebrae. A spine fracture indicates 5X risk for subsequent spine fracture and 2X risk for subsequent hip fracture. * Osteoporosis (T-score <-2.5). * Postmenopausal women and men age 50 and older with low bone mass/osteopenia (T-score between -1.0 and -2.5) by DXA and 10-year major osteoporotic fracture greater than 20% or a 10-year probability of hip fracture greater than 3%. These fracture risks are supplied above in the FRAX score, if applicable. * Clinician judgement and/or patient preferences may indicate treatment for people with 10-year fracture probabilities above or below these levels. Dictated by: Dictated on workstation # [id number]
== END ==
LOC: RAD 09:27
PROVIDERS: ATTEND Internal Medicine
DX: Z13.820 Encounter for screening for osteoporosis (principal); M85.80 Other specified disorders of bone density and structure, unspecified site; Z78.0 Asymptomatic menopausal state
CPT/HCPCS: 77080

== ENCOUNTER → 2021-11-30 | Outpatient (CLI) | payer MEDICARE ==
--- NOTE | 2021-11-30 13:08 | Diagnostic Imaging Report ---
INDICATION: Routine screening. COMPARISON is made with prior mammograms from 11/26/2020 and 11/26/2019. 2-D and 3-D bilateral screening mammography was performed with CAD. Scattered fibroglandular densities are identified bilaterally. The parenchymal pattern is stable. No mass or malignant-appearing microcalcifications are seen. Axillae are unremarkable. IMPRESSION: BI-RADS Category 1 No mammographic features suspicious for malignancy are identified. ACR BI-RADS Category 1: Negative. Result letter will be mailed to the patient. Note: At least 10% of breast cancer is not imaged by mammography. Dictated by: Dictated on workstation # [id number]
== END ==
LOC: RAD 10:15
PROVIDERS: ATTEND Internal Medicine
DX: Z12.31 Encounter for screening mammogram for malignant neoplasm of breast (principal)
CPT/HCPCS: 77063; 77067

== ENCOUNTER → 2022-11-30 | Outpatient (CLI) | payer MEDICARE ==
[~2022-11-30] MED LIST changes: +OLME-40 PO; -OLME1TAB24 PO
--- NOTE | 2022-11-30 15:44 | Diagnostic Imaging Report ---
INDICATION: Routine screening. COMPARISON: 11/30/2021 and 11/26/2020. TECHNIQUE: 2D and 3D bilateral screening mammography was performed with CAD. FINDINGS: Scattered fibroglandular densities are identified bilaterally. The parenchymal pattern is stable. No mass or malignant-appearing microcalcifications are seen. The axillae are unremarkable. IMPRESSION: No mammographic features suspicious for malignancy are identified. ACR BI-RADS Category 1: Negative. Result letter will be mailed to the patient. Note: At least 10% of breast cancer is not imaged by mammography. Dictated by: Dictated on workstation # [id number]
== END ==
LOC: RAD 09:14
PROVIDERS: ATTEND Internal Medicine
DX: Z12.31 Encounter for screening mammogram for malignant neoplasm of breast (principal)
CPT/HCPCS: 77063; 77067